=== PATIENT | male | born 1955 | race Caucasian/White ===

== ENCOUNTER 2018-09-11 20:24 | Observation (INO) | payer OTHER ==
[~2018-09-11] VITALS: Ht 172.7 cm; Wt 90.9 kg
[2018-09-11] MEDS ORDERED: NITROGLYCERIN SINGLE TAB 0.4 MG SL ONE (20:49)
[2018-09-11] MEDS ORDERED: ASPIRIN 81 MG TABLET CHEW ONE (20:49)
[2018-09-11] MEDS: NITROGLYCERIN SINGLE TAB 0.4 MG SL PRN ×3 (20:52→21:08)
[2018-09-11] MEDS ORDERED: LOSA50TA7 PO (20:54)
[2018-09-11] MEDS ORDERED: METF500T17 PO (20:54)
[2018-09-11] MEDS ORDERED: ATOR20TA PO (20:54)
[2018-09-11] MEDS ORDERED: DULA0.75 INJ (20:54)
[2018-09-11] MEDS ORDERED: ASPIRIN 81 MG TABLET CHEW PO ONE (21:00)
[2018-09-11 21:06] LABS: BASOPHILS # (AUTO) 0.05 x10^3/uL (0-0.1); BASOPHILS % (AUTO) 1 % (0-1); EOSINOPHILS % (AUTO) 3 % (1-7); LYMPHOCYTES # (AUTO) 2.81 x10^3/uL (1-3.4); LYMPHOCYTES % (AUTO) 38 % (22-44); MD NO; MEAN CORPUSCULAR HEMOGLOBIN 32.3 pg (27.5-34.5); MEAN CORPUSCULAR HGB CONC 34.3 g/dL (33.2-36.2); MEAN PLATELET VOLUME 8.3 fL (7.4-10.4); MONOCYTES # (AUTO) 0.63 x10^3/uL (0.2-0.8); MONOCYTES % (AUTO) 9 % (2-9); NEUTROPHILS # (AUTO) 3.64 x10^3/uL (1.8-6.8); NEUTROPHILS % (AUTO) 50 % (42-75); PLATELET COUNT 263 x10^3/uL (130-400); RED BLOOD COUNT 5.01 x10^6/uL (4.38-5.82); RED CELL DISTRIBUTION WIDTH 14.4 % (9.4-14.8)
[2018-09-11 21:14] LABS: ALBUMIN 4.3 g/dL (3.4-5.0); ANION GAP 7 mmol/L (5-15); CALCIUM 8.6 mg/dL (8.5-10.1); CHLORIDE 110 mmol/L (98-107); CREATININE 1.49 mg/dL (0.7-1.3)
[2018-09-11 21:17] LABS: TROPONIN I < 0.015 ng/mL (0.000-0.045)
[2018-09-11] MEDS ORDERED: ACETAMINOPHEN 500 MG TABLET ONE (21:46)
[2018-09-11] MEDS ORDERED: ACETAMINOPHEN 500 MG TABLET PO ONE (22:00)
[2018-09-11 23:11] VITALS: BP 131/79
[2018-09-12] MEDS ORDERED: DOCUSATE 100 MG CAPSULE PO PRN (00:30)
[2018-09-12] MEDS ORDERED: LIDODERM 5% PATCH TD PRN (00:30)
[2018-09-12] MEDS ORDERED: hydrALAzine 20 MG/ML, 1ML IVPush PRN (00:30)
[2018-09-12] MEDS ORDERED: ONDANSETRON ODT 4 MG PO PRN (00:30)
[2018-09-12] MEDS ORDERED: ACETAMINOPHEN 325 MG TABLET PO PRN (00:30)
[2018-09-12] MEDS ORDERED: NITROGLYCERIN 0.4 MG BOTTLE (25 TABS) SL PRN (00:30)
[2018-09-12] MEDS ORDERED: TEMAZEPAM 15 MG CAPSULE PO PRN (00:30)
[2018-09-12] MEDS ORDERED: ATORVASTATIN 20 MG TABLET PO SCH (01:00)
[2018-09-12] MEDS ORDERED: LOSARTAN 50MG TABLET PO SCH (01:00)
[2018-09-12 02:56] LABS: TROPONIN I < 0.015 ng/mL (0.000-0.045)
[2018-09-12 03:18] VITALS: BP 136/78
[2018-09-12 07:48] VITALS: BP 130/78
[2018-09-12 09:31] LABS: TROPONIN I < 0.015 ng/mL (0.000-0.045)
[2018-09-12] MEDS ORDERED: REGADENOSON 0.4 MG/5 ML SYRINGE ONE (09:47)
[2018-09-12] MEDS ORDERED: MAALOX/HYOSCYAMINE/LIDOCAINE 45 ML BTL PO ONE (11:00)
[2018-09-12 11:21] LABS: ANION GAP 9 mmol/L (5-15); CALCIUM 8.2 mg/dL (8.5-10.1); CHLORIDE 113 mmol/L (98-107); CREATININE 1.29 mg/dL (0.7-1.3)
[2018-09-12 13:38] VITALS: BP 154/81
[2018-09-12] MEDS ORDERED: ASPI-496 PO (14:20)
[2018-09-13] MEDS ORDERED: ASPIRIN 325 MG TABLET PO SCH (06:00)
== END 2018-09-12 15:55 | disposition home or self-care (01) ==
LOC: ED 20:58 → EDIP 21:30 → INTOOBSV 21:30 → 5SO 22:39
PROVIDERS: ADMIT Family Medicine; ATTEND Family Medicine
DX: R07.89 Other chest pain (principal); N17.9 Acute kidney failure, unspecified; E11.9 Type 2 diabetes mellitus without complications; E78.00 Pure hypercholesterolemia, unspecified; E78.5 Hyperlipidemia, unspecified; I10 Essential (primary) hypertension; Z82.3 Family history of stroke
CPT/HCPCS: 36415; 71045; 78452; 80048; 82040; 84484; 85025; 93005; 93017; 93306; 99284; A9502; C9898; G0378; J2785; 99285

== ENCOUNTER → 2021-04-25 | Outpatient (CLI) | payer MEDICARE ==
[~2021-04-25] MED LIST: ASPI-496 PO; ATOR20TA PO; DULA0.75 INJ; LOSA50TA14 PO; METF500T17 PO
== END | disposition home or self-care (01) ==
LOC: RAD 09:16 → EDSTATUS 09:30
PROVIDERS: ATTEND Internal Medicine Nephrology
DX: N32.89 Other specified disorders of bladder (principal); E11.22 Type 2 diabetes mellitus with diabetic chronic kidney disease; I12.9 Hypertensive chronic kidney disease with stage 1 through stage 4 chronic kidney disease, or unspecified chronic kidney disease; N18.31 Chronic kidney disease, stage 3a
CPT/HCPCS: 76770